=== PATIENT | female | born 1970 | race Caucasian/White ===

== ENCOUNTER 2021-12-20 13:24 | Outpatient (CLI) | payer BC | END 2021-12-20 13:25 | disposition home or self-care (01) | LOC: CSHCT 13:24 | PROVIDERS: ATTEND Neurological Surgery | DX: M54.50 Low back pain, unspecified (principal); M47.816 Spondylosis without myelopathy or radiculopathy, lumbar region; M43.16 Spondylolisthesis, lumbar region; M48.061 Spinal stenosis, lumbar region without neurogenic claudication; M51.36 Other intervertebral disc degeneration, lumbar region | CPT/HCPCS: 72120; 72131 ==

== ENCOUNTER 2022-05-29 08:06 | Outpatient (CLI) | payer BC | END 2022-05-29 08:07 | disposition home or self-care (01) | LOC: CSHMRI 08:06 | PROVIDERS: ATTEND Anesthesiology Pain Medicine | DX: M47.816 Spondylosis without myelopathy or radiculopathy, lumbar region (principal) | CPT/HCPCS: 72148 ==